=== PATIENT | female | born 1935 | race Caucasian/White ===

== ENCOUNTER 2019-04-09 17:06 | Inpatient (IN) | payer MEDICARE ==
[~2019-04-09] VITALS: Ht 160 cm; Wt 74.4 kg
[2019-04-09 18:03] LABS: BASOPHILS # (AUTO) 0.1 K/uL (0.0-8.0); BASOPHILS % (AUTO) 0.6 % (0.0-2.0); EOSINOPHILS # (AUTO) 0.4 K/uL (0.0-0.7); HEMATOCRIT 36.8 % (31.2-41.9); HEMOGLOBIN 12.5 g/dL (10.9-14.3); LYMPHOCYTES # (AUTO) 2.2 K/uL (20.0-40.0); LYMPHOCYTES % (AUTO) 15.4 % (20.5-51.5); MEAN CORPUSCULAR HEMOGLOBIN 29.3 uug (24.7-32.8); MEAN CORPUSCULAR HGB CONC 34 g/dL (32.3-35.6); MEAN CORPUSCULAR VOLUME 85.9 fL (75.5-95.3); MONOCYTES # (AUTO) 1.1 K/uL (2.0-10.0); NEUTROPHILS # (AUTO) 10.5 K/uL (1.8-8.9); PLATELET COUNT (AUTO) 105 K/uL (179-408); RED BLOOD CELL COUNT(AUTO) 4.29 MIL/uL (3.63-4.92); WHITE BLOOD COUNT (AUTO) 14.4 K/uL (3.8-11.8)
[2019-04-09 18:09] LABS: CARBON DIOXIDE 27 mmol/L (21-32); CHLORIDE 102 mmol/L (98-107); GLUCOSE 101 mg/dL (74-106); POTASSIUM 3.5 mmol/L (3.5-5.1); UREA NITROGEN, BLOOD 22 mg/dL (7-18)
[2019-04-09 18:12] LABS: ETHANOL < 3 MG/DL (0-0)
[2019-04-09 18:15] LABS: ALANINE AMINOTRANSFERASE 13 U/L (14-59); ALKALINE PHOSPHATASE 119 U/L (50-136); ASPARTATE AMINOTRANSFERASE 33 U/L (15-37); BILIRUBIN,DIRECT 0.3 mg/dL (0.0-0.2); BILIRUBIN,TOTAL 0.7 mg/dL (0.2-1.0); TOTAL PROTEIN, SERUM 6.2 g/dL (6.4-8.2)
[2019-04-09 18:16] LABS: ACETAMINOPHEN < 2.0 ug/mL (10-30)
[2019-04-09 18:38] LABS: THYROID STIMULATING HORMONE 2.908 mIU/mL (0.358-3.740)
--- NOTE | 2019-04-09 18:44 | NUR ---
PT TRYING TO COME OUT OF BED, WITH UNSTEADY GAIT AND CONFUSED. FREIGHT CAR CLEAN[employer] DELTA SYSTEM NOTIFIED FOR ONE TO ONE SITTER.
[2019-04-09] MEDS ORDERED: AZITHROMYCIN IV 500 MG in IV DEXTROSE 5% 250 ML IV ONE (18:45)
[2019-04-09] MEDS ORDERED: CEFTRIAXONE 1 G in IV DEXTROSE 5% 50 ML IV ONE (18:45)
[2019-04-09] MEDS ORDERED: AZITHROMYCIN 500MG/ D5W 250ML IVPB **ER PYXIS ONLY IV ONE (18:58)
[2019-04-09] MEDS ORDERED: CEFTRIAXONE /D5W 50ML IVPB **ER PYXIS IV ONE (18:58)
[2019-04-09] MEDS ORDERED: HYDROCODONE/APAP 5-325MG TABLET ONE (19:44)
--- NOTE | 2019-04-09 20:10 | NUR ---
DR AVALOS ON PANEL CALL WITH DR HERRERA. PT ACCEPTED FOR ADMISSION TO MED-SURG. DX: PNEUMONIA.
[2019-04-09] MEDS ORDERED: Z GUARD REMEDY PASTE 57 GM TUBE TOP PRN (20:30)
[2019-04-09] MEDS ORDERED: HYDROCODONE/APAP 5-325MG TABLET PO PRN (20:30)
[2019-04-09] MEDS ORDERED: ONDANSETRON 4 MG/2 ML VIAL IV PRN (20:30)
[2019-04-09] MEDS ORDERED: ACETAMINOPHEN 325 MG TABLET PO PRN (20:30)
[2019-04-09] MEDS ORDERED: MAGNESIUM HYDROXIDE 30 ML LIQUID UDC PO PRN (20:30)
--- NOTE | 2019-04-09 20:39 | NUR ---
Report given KATHARINA ERNST. Pt. being admitted to [facility] , under care of Dr. HERRERA. Belongs List completed.
--- NOTE | 2019-04-09 21:00 | NUR ---
RECEIVED PATIENT VIA GURNEY FROM ER. PATIENT IS A/O X2, BUT VERY FORGETFUL. SITTER AT BEDSIDE. VSS. DENIES PAIN OR DISCOMFORT. NO RESP. DISTRESS NOTED. H/L INTACT AND PATENT, NOTED TO LEFT HAND. BED ALARM ON. CALL LIGHT IN REACH. ALL NEEDS ATTENDED. WILL CONTINUE TO MONITOR AND ASSESS.
[2019-04-09 21:15] VITALS: BP 127/78
[2019-04-09] MEDS: IV NS 1000 ML 1,000 ML IV PRN (21:29)
--- NOTE | 2019-04-10 05:00 | NUR ---
PATIENT AWAKE, SITTER AT BEDSIDE. PATIENT UNABLE TO URINATE AT THIS TIME. CHECKED WITH BLADDER SCANNER AND RECEIVED RETENTION OF 700cc OF URINE. CALLED OUT TO DR. LUCIANO FOR FURTHER ORDERS. WILL CONTINUE TO MONITOR AND ASSESS.
--- NOTE | 2019-04-10 05:10 | NUR ---
RECEIVED ORDER FOR F/C INSERTION. FLETCHER PLACED ORDERED. IV DISLODGED. RE-INSERTED TO RIGHT FA #20 GAUGE. IVF INFUSING WELL. VS WNL. PATIENT DENIES PAIN. SITTER AT BEDSIDE FOR SAFETY. BED ALARM ON. ALL NEEDS ATTENDED. WILL CONTINUE TO MONITOR AND ASSESS.
[2019-04-10 05:30] VITALS: BP 101/59
[2019-04-10 07:21] LABS: BASOPHILS % (AUTO) 0.3 % (0.0-2.0); EOSINOPHILS # (AUTO) 0.4 K/uL (0.0-0.7); EOSINOPHILS % (AUTO) 3.8 % (0.0-7.0); HEMOGLOBIN 11.5 g/dL (10.9-14.3); LYMPHOCYTES # (AUTO) 1.2 K/uL (20.0-40.0); LYMPHOCYTES % (AUTO) 12.2 % (20.5-51.5); MEAN CORPUSCULAR HEMOGLOBIN 28.5 uug (24.7-32.8); MEAN CORPUSCULAR HGB CONC 33 g/dL (32.3-35.6); MEAN CORPUSCULAR VOLUME 86.9 fL (75.5-95.3); MONOCYTES # (AUTO) 0.7 K/uL (2.0-10.0); MONOCYTES % (AUTO) 7.5 % (0.0-11.0); NEUTROPHILS # (AUTO) 7.4 K/uL (1.8-8.9); NEUTROPHILS % (AUTO) 76.2 % (38.5-71.5); PLATELET COUNT (AUTO) 104 K/uL (179-408); RED BLOOD CELL COUNT(AUTO) 4.03 MIL/uL (3.63-4.92); WHITE BLOOD COUNT (AUTO) 9.7 K/uL (3.8-11.8)
[2019-04-10 07:45] LABS: BILIRUBIN,TOTAL 0.6 mg/dL (0.2-1.0); CREATININE 0.8 mg/dL (0.6-1.3); MAGNESIUM 2.1 mg/dL (1.8-2.4); PHOSPHOROUS 3.4 mg/dL (2.5-4.9); POTASSIUM 3.1 mmol/L (3.5-5.1); TOTAL PROTEIN, SERUM 6.1 g/dL (6.4-8.2)
[2019-04-10] MEDS: IV NS 1000 ML 1,000 ML IV PRN (12:06)
[2019-04-10 12:46] VITALS: BP 128/83
[2019-04-10] MEDS ORDERED: POTASSIUM CHLORIDE 20 MEQ TAB.PRT.SR PO ONE (15:30)
[2019-04-10] MEDS ORDERED: AZITHROMYCIN IV 250 MG in IV DEXTROSE 5% 250 ML IV SCH (18:00)
[2019-04-10] MEDS ORDERED: HYDROCODONE/APAP 5-325MG TABLET PO PRN (18:00)
[2019-04-10] MEDS: CEFTRIAXONE 1 G in IV DEXTROSE 5% 50 ML IV SCH (18:04)
[2019-04-10] MEDS ORDERED: ONDANSETRON 4 MG/2 ML VIAL IV PRN (18:15)
--- NOTE | 2019-04-10 19:30 | NUR ---
Received patient awake and alert in bed, A/Ox2 with 1:1 sitter at bedside. No signs of acute distress noted. No complaints of pain or SOB. Vitals WNL. Patient needs reorientation, trying to get out of bed but is very weak. Loera is intact and draining well. Urine is clear, yellow. Safety measures initiated. Bed is low and locked, call light within reach. Will continue to monitor.
[2019-04-10 19:48] VITALS: BP 125/84
[2019-04-10] MEDS ORDERED: QUETIAPINE FUMARATE 25 MG TABLET PO SCH (21:00)
[2019-04-11] MEDS: IV NS 1000 ML 1,000 ML IV PRN ×2 (03:13→20:35)
[2019-04-11 04:00] VITALS: BP 121/78
[2019-04-11 06:29] LABS: CREATININE 0.8 mg/dL (0.6-1.3); POTASSIUM 3.7 mmol/L (3.5-5.1)
[2019-04-11 11:11] VITALS: BP 102/64
[2019-04-11 15:24] VITALS: BP 146/71
[2019-04-11] MEDS: AZITHROMYCIN 250 MG TABLET PO SCH (19:17)
[2019-04-11] MEDS: CEFTRIAXONE 1 G in IV DEXTROSE 5% 50 ML IV SCH (19:17)
--- NOTE | 2019-04-11 19:30 | NUR ---
Received patient awake and alert in bed, 1:1 sitter at bedside. Patient is restless, trying to get out of bed, but is too weak. Frequent reorientation needed. Noted patients Seroquel dose increased. IVF running on the right wrist, no s/s of infection or infiltration noted. Safety measures initiated. Bed is low and locked, will continue to monitor.
[2019-04-11 19:51] VITALS: BP 143/83
[2019-04-11] MEDS ORDERED: QUETIAPINE FUMARATE 25 MG TABLET PO SCH (21:00)
[2019-04-12 05:00] VITALS: BP 133/85
--- NOTE | 2019-04-12 07:35 | NUR ---
Received patient awake in bed with 1:1 sitter at bedside. Patient is restless and trying to get out of bed. Frequent reorientation needed. IVF running on the right wrist at 75 ml/hr with NS. Safety and comfort provided. will continue to monitor.
[2019-04-12 08:00] VITALS: BP 161/95
[2019-04-12] MEDS: IV NS 1000 ML 1,000 ML IV PRN (10:44)
[2019-04-12 12:00] VITALS: BP 142/71
[2019-04-12 15:48] VITALS: BP 136/73
[2019-04-12] MEDS: AZITHROMYCIN 250 MG TABLET PO SCH (18:08)
--- NOTE | 2019-04-12 19:00 | NUR ---
RECEIVED ORDER TO DISCHARGE PATIENT TO MHU , DISCHARGE INSTRUCTION GIVEN . IV AND ID BAND REMOVED. PATIENT REFUSED PICTURE TAKEN. BELONGINGS ACCOUNTED FOR AND SIGNED. QUESTIONS AND CONCERNS ADDRESSED.
== END 2019-04-12 18:30 | DRG 871 ==
LOC: ER 17:09 → TELE3 20:38 → MEDSURG3 21:26
PROVIDERS: ADMIT Hospitalist; ATTEND Hospitalist
DX: A41.9 Sepsis, unspecified organism (principal); J18.1 Lobar pneumonia, unspecified organism; F33.2 Major depressive disorder, recurrent severe without psychotic features; E44.0 Moderate protein-calorie malnutrition; D69.6 Thrombocytopenia, unspecified; E87.6 Hypokalemia; E86.0 Dehydration; Z91.19 Patient's noncompliance with other medical treatment and regimen; M41.9 Scoliosis, unspecified; F09 Unspecified mental disorder due to known physiological condition; R33.9 Retention of urine, unspecified; F41.9 Anxiety disorder, unspecified
CPT/HCPCS: 36415; 70030-TC; 71045; 83735; 84100; 84443; 85025; 85730; 87040; 93005; A4663; G0378; G0480; G0480-TC; J0456; J0696; J7030; J7060; Q0144

== ENCOUNTER 2019-04-12 19:49 | Inpatient (IN) | payer MEDICARE ==
[~2019-04-12] VITALS: Ht 160 cm; Wt 73.9 kg
[2019-04-12 20:00] VITALS: BP 140/88
[2019-04-12] MEDS ORDERED: TEMAZEPAM 7.5 MG CAPSULE PO PRN (20:45)
[2019-04-12] MEDS ORDERED: MAG HYDROX/AL HYDROX/SIMETH 30 ML LIQUID UDC PO PRN (20:45)
[2019-04-12] MEDS ORDERED: ACETAMINOPHEN 325 MG TABLET PO PRN (20:45)
[2019-04-12] MEDS ORDERED: QUETIAPINE FUMARATE 25 MG TABLET PO PRN (20:45)
[2019-04-12] MEDS ORDERED: TRAZODONE 50 MG TABLET PO PRN (20:45)
[2019-04-12] MEDS ORDERED: MAGNESIUM HYDROXIDE 30 ML LIQUID UDC PO PRN (20:45)
[2019-04-12] MEDS ORDERED: QUETIAPINE FUMARATE 25 MG TABLET PO SCH (21:00)
--- NOTE | 2019-04-13 03:04 | NUR ---
ADMITTING NOTE; received to care, at 1845, from the med/ surg floor, on a 14 hour hold for gravely disabled, a resident of [facility]. according to the records, she had resided there for a short time, but had become unmanageable, refusing medications and care, not sleeping. attempting to get up without assistance, and swinging at staff when redirected. upon arrival at the emergency room, she was diagnosed with LLL pneumonia, and was admitted on the floor for IV antibiotics, with a 1;1 sitter, for safety. she was now medically clear, and was transferred to the mental health unit. upon arrival here, she was confused and disoriented, believing she was at home, and unable to provide much meaningful information. 1;1 sitter was assigned for safety. she continues to refuse all medications. difficult to redirect. assisted to bed at around 0145. as of now, she appears to be asleep. no distress noted. will continue to monitor closely.
--- NOTE | 2019-04-13 06:00 | NUR ---
pt did not sleep, at all. assisted with am care, and shower. 1;1 sitter remains at side, for safety.
[2019-04-13] MEDS ORDERED: QUETIAPINE FUMARATE 25 MG TABLET PO PRN (07:30)
[2019-04-13] MEDS ORDERED: TRAZODONE 50 MG TABLET PO PRN (07:30)
[2019-04-13 10:00] VITALS: BP 133/86
--- NOTE | 2019-04-13 11:12 | NUR ---
Social Work Initial Discharge Note: Patient currently resides at [address] [address]; ([phone]). Per pt, she would like to return back home. This copy writer contacted Dawn admin coordinator ([phone]), stated that patient is welcomed back upon discharge. sewage disposal worker will work with the patient and the MD regarding appropriate discharge planning. sewage disposal worker will form a safe and proper discharge plan.
--- NOTE | 2019-04-13 11:13 | NUR ---
Social Work Family Contact Note: sawmill or timber yard worker contacted patients family member Dawn ([phone]) and Jose ([phone]) and both were unavailable, however; this conventional mortgage underwriter left a detailed voicemail to call back.
[2019-04-13] MEDS ORDERED: QUETIAPINE FUMARATE 25 MG TABLET PO SCH ×3 (12:00→21:00)
--- NOTE | 2019-04-13 14:36 | NUR ---
called and spoke with Dr. Yeager to DC Loera catheter , orders made and carried out
--- NOTE | 2019-04-13 14:49 | NUR ---
Patient for transfer to [facility] for overflow with one to one. will give report to BRITTA Bourgeois. collected urine for UA/CS.will send to lab.
--- NOTE | 2019-04-13 15:03 | NUR ---
RECEIVED PT VIA MIGUEL CHAIR ESCORTED BY 1:1 SITTER. NO ACUTE DISTRESS OR SOB NOTED. FLETCHER CATHETER REMOVED IN MHU UNIT. WILL MONITOR FOR SAFETY, COMFORT AND URINARY RETENTION. 1:1 SITTER AT BEDSIDE FOR SAFETY.
[2019-04-13 16:00] VITALS: BP 133/92
[2019-04-13 16:03] LABS: *BILIRUBIN,URIN NEGATIVE (NEGATIVE); *BLOOD, URINE 3+ (NEGATIVE); *CLARITY,URINE SLIGHTLY CLOUDY (CLEAR); *COLOR,URINE YELLOW (YELLOW); *KETONES,URINE TRACE (NEGATIVE); *UROBILINOGEN,URINE 0.2 E.U./dl (NORMAL); LEUKOCYTE ESTERASE ,URINE TRACE (NEGATIVE); NITRITE, URINE NEGATIVE (NEGATIVE); UGLUCOSE NEGATIVE (NEGATIVE)
[2019-04-13 16:26] LABS: MUCUS,URINE MANY /LPF (0-FEW); RBC,URINE 50-80 /HPF (0-3); SQUAMOUS EPITHELIAL CELL,UR FEW /HPF (NONE SEEN)
--- NOTE | 2019-04-13 18:00 | NUR ---
BLADDER SCAN DONE. SHOWS 172CC IN BLADDER. PT HAS NOT VOIDED SINCE FLETCHER REMOVAL AT MHU @ 1500. PSYCH AWARE. PT HAS A 1:1 SITTER AT BEDSIDE FOR SAFETY. NO ACUTE DISTRESS NOTED. WILL GIVE REPORT ACCORDINGLY IN ORDER TO MONITOR SAFETY AND URINE OUTPUT.
--- NOTE | 2019-04-13 19:00 | NUR ---
Received patient in bed asleep but arousable, A&Ox1. No SOB noted. w/ 1:1 sitter for safety.
[2019-04-13] MEDS: CEphaleXIN 500 MG CAPSULE PO SCH (21:01)
--- NOTE | 2019-04-13 23:00 | NUR ---
Patient didn't void yet since 1500, bladder scan done noted w/ 261ml residuals. Patient to be transferred back to MHU. Report given to Brice CALLEJAS
--- NOTE | 2019-04-14 06:15 | NUR ---
Patient didn't void throughout the night. Bladder scan done noted w/ 642ml residuals. patient in no distress. Dr. Johnson notified and new order obtained to do and "In and Out straight cath". order noted and carried out. Obtained Urine output of 800ml. patient tolerated well. will continue to monitor.
[2019-04-14] MEDS: CEphaleXIN 500 MG CAPSULE PO SCH ×3 (06:46→22:13)
[2019-04-14 07:30] VITALS: BP 157/88
--- NOTE | 2019-04-14 11:19 | NUR ---
Social Work Family Contact Note: burlap worker contacted patients family member Dawn ([phone]) and left a voicemail to call back.
[2019-04-14 20:29] VITALS: BP 113/72
[2019-04-14] MEDS: QUETIAPINE FUMARATE 25 MG TABLET PO SCH (21:44)
--- NOTE | 2019-04-15 05:12 | NUR ---
NSG/GPS Patient first observed awake sitting in lan-chair in the hallway. Patient appears disheveled and unkempt. Alert to name only. No aggression or behavior noted. Patient is compliant with medication. Requires assist to ambulate, observed attempting to walk to the bathroom by herself this morning, advised to wait for nursing assistance. Patient requested prn for constipation, will administer as ordered. Slept well through the night without signs of discomfort or distress will continue to monitor for safety as well as continue to provide a safe and therapeutic environment.
[2019-04-15] MEDS: CEphaleXIN 500 MG CAPSULE PO SCH ×3 (06:00→21:17)
[2019-04-15 07:13] LABS: BASOPHILS # (AUTO) 0.1 K/uL (0.0-8.0); BASOPHILS % (AUTO) 0.8 % (0.0-2.0); EOSINOPHILS # (AUTO) 0.4 K/uL (0.0-0.7); EOSINOPHILS % (AUTO) 4.2 % (0.0-7.0); HEMATOCRIT 38.5 % (31.2-41.9); HEMOGLOBIN 12.6 g/dL (10.9-14.3); LYMPHOCYTES # (AUTO) 1.3 K/uL (20.0-40.0); LYMPHOCYTES % (AUTO) 14.8 % (20.5-51.5); MEAN CORPUSCULAR HEMOGLOBIN 27.8 uug (24.7-32.8); MEAN CORPUSCULAR HGB CONC 33 g/dL (32.3-35.6); MONOCYTES # (AUTO) 0.6 K/uL (2.0-10.0); MONOCYTES % (AUTO) 6.8 % (0.0-11.0); NEUTROPHILS # (AUTO) 6.5 K/uL (1.8-8.9); NEUTROPHILS % (AUTO) 73.4 % (38.5-71.5); PLATELET COUNT (AUTO) 208 K/uL (179-408); RED BLOOD CELL COUNT(AUTO) 4.52 MIL/uL (3.63-4.92); WHITE BLOOD COUNT (AUTO) 8.8 K/uL (3.8-11.8)
[2019-04-15 07:30] VITALS: BP 102/53
[2019-04-15 07:53] LABS: BILIRUBIN,TOTAL 0.4 mg/dL (0.2-1.0); CREATININE 0.9 mg/dL (0.6-1.3); MAGNESIUM 1.9 mg/dL (1.8-2.4); PHOSPHOROUS 3.8 mg/dL (2.5-4.9); POTASSIUM 3.7 mmol/L (3.5-5.1); TOTAL PROTEIN, SERUM 6.6 g/dL (6.4-8.2)
[2019-04-15 09:20] LABS: THYROID STIMULATING HORMONE 2.662 mIU/mL (0.358-3.740)
--- NOTE | 2019-04-15 09:39 | NUR ---
Social Work Individual Therapy Note: elementary school social worker met with patient for brief counseling to address patients self-care, bathing and grooming. Patient is unable to have a meaningful conversation. elementary school social worker prompted patient the importance of self-care, bathing and grooming. Patient acknowledged and agreed to participate in self-care. This bond writer informed if she needs assistance to call a nurse.
--- NOTE | 2019-04-15 09:56 | NUR ---
Social Work PC Hearing Notification Note: circulation worker contacted patient's family member Shelli, ([phone]) and notified patients probable cause of hearing today. This designer writer left a voicemail.
[2019-04-15 16:00] VITALS: BP 113/64
[2019-04-15 20:08] VITALS: BP 112/62
[2019-04-15] MEDS: QUETIAPINE FUMARATE 25 MG TABLET PO SCH (21:16)
[2019-04-16] MEDS: CEphaleXIN 500 MG CAPSULE PO SCH ×3 (06:22→21:36)
[2019-04-16 07:30] VITALS: BP 107/71
[2019-04-16 15:56] VITALS: BP 132/76
[2019-04-16] MEDS: QUETIAPINE FUMARATE 25 MG TABLET PO SCH (20:02)
[2019-04-16 20:18] VITALS: BP 143/83
[2019-04-17] MEDS: CEphaleXIN 500 MG CAPSULE PO SCH ×3 (06:39→22:00)
[2019-04-17 07:30] VITALS: BP 138/86
--- NOTE | 2019-04-17 11:58 | NUR ---
Gps/Laborer Wharf- Kept up on her lan-chair, fed self ind. after set up. had been cooperative with staff. Needy, constant redirection provided .Safety reviewed and emphasized.
[2019-04-17 16:00] VITALS: BP 127/78
[2019-04-17] MEDS: QUETIAPINE FUMARATE 25 MG TABLET PO SCH (20:08)
[2019-04-17 20:35] VITALS: BP 148/91
[2019-04-18] MEDS: CEphaleXIN 500 MG CAPSULE PO SCH (06:49)
[2019-04-18 07:30] VITALS: BP 142/100
[2019-04-18 16:13] VITALS: BP 123/77
--- NOTE | 2019-04-18 16:45 | NUR ---
Gps/Golf Club Head Former- Stayed in the activity room during the afternoon, participating in her group therapy
[2019-04-18 20:19] VITALS: BP 120/80
[2019-04-18] MEDS: QUETIAPINE FUMARATE 25 MG TABLET PO SCH (21:13)
--- NOTE | 2019-04-18 22:00 | NUR ---
received to care, in the hallway, up in the lan chair, appearing disheveled, and confused. compliant with all medications, fluids, and snacks, given. as of 2200, she appears asleep, in bed. no distress noted. will continue to monitor closely.
--- NOTE | 2019-04-19 06:00 | NUR ---
slept 7 hours. continues to sleep. no distress noted.
[2019-04-19 07:30] VITALS: BP 119/81
[2019-04-19 08:41] LABS: BILIRUBIN,TOTAL 0.4 mg/dL (0.2-1.0); CREATININE 1.1 mg/dL (0.6-1.3); MAGNESIUM 2.1 mg/dL (1.8-2.4); PHOSPHOROUS 4.3 mg/dL (2.5-4.9); POTASSIUM 4.3 mmol/L (3.5-5.1); TOTAL PROTEIN, SERUM 7.4 g/dL (6.4-8.2)
[2019-04-19 08:51] LABS: BASOPHILS % (AUTO) 0.7 % (0.0-2.0); EOSINOPHILS # (AUTO) 0.3 K/uL (0.0-0.7); EOSINOPHILS % (AUTO) 4.9 % (0.0-7.0); HEMATOCRIT 42.4 % (31.2-41.9); HEMOGLOBIN 13.7 g/dL (10.9-14.3); LYMPHOCYTES # (AUTO) 1.6 K/uL (20.0-40.0); LYMPHOCYTES % (AUTO) 27.1 % (20.5-51.5); MEAN CORPUSCULAR HEMOGLOBIN 27.8 uug (24.7-32.8); MEAN CORPUSCULAR HGB CONC 32 g/dL (32.3-35.6); MEAN CORPUSCULAR VOLUME 85.9 fL (75.5-95.3); MONOCYTES # (AUTO) 0.4 K/uL (2.0-10.0); MONOCYTES % (AUTO) 6.8 % (0.0-11.0); NEUTROPHILS # (AUTO) 3.6 K/uL (1.8-8.9); NEUTROPHILS % (AUTO) 60.5 % (38.5-71.5); PLATELET COUNT (AUTO) 247 K/uL (179-408); RED BLOOD CELL COUNT(AUTO) 4.94 MIL/uL (3.63-4.92)
--- NOTE | 2019-04-19 09:35 | NUR ---
Social Work Discharge Note: Patient will be discharged back to [facility] [address] [place] [address]; ([phone]) via [facility] at 2PM. BALA spoke with Dawn radiology administrator, ([phone]) at the facility who states they are ready to accept the patient back today. Patient is aware and agreeable with discharge plans. Patients family member Shelli ([phone]) is aware and agreeable with discharge plans. Patient is alert and oriented x1-2, is unable to plan for self-care, but agrees to receiving care at the facility. Patient denies any suicidal or homicidal ideations. Patient will follow-up at the facility with Dr. Luis Mae (Senior Research Engineer) and Dr. Hernández (Psychiatrist). Patient presents with euthymic mood and congruent affect.
--- NOTE | 2019-04-19 09:40 | NUR ---
Social Work Firearms Report: Director Distribution completed and submitted a [employer] firearms report for 5250 grave disability certification. A copy of report has been placed in patient chart.
--- NOTE | 2019-04-19 09:40 | NUR ---
Social Work Individual Therapy Note: dyehouse worker met with patient for brief counseling to address patients self-care, bathing and grooming. Patient is able to have meaningful conversation but still presents confused. dyehouse worker prompted patient the importance of self-care, bathing and grooming. Patient acknowledged and agreed to participate in self-care. This headline writer informed if she needs assistance to call a nurse.
--- NOTE | 2019-04-19 10:07 | NUR ---
Social Work Coordination of Care: whiting can worker faxed patients H & P psychiatric notes and progress notes to Dawn admin coordinator at [facility] ([phone]).
--- NOTE | 2019-04-19 12:37 | NUR ---
Received patient awake, alert and oriented in chair. Patient is calm, cooperative, and redirectable. Patient denies SI/HI, denies AH/VH. Patient is able to communicate her needs to staff. Patient has unsteady gait, requires staff assistance with ambulation. Patient able to eat and drink fluids independently, requires assistance with ADL's. Patient is education about impulse control and communicating her needs to staff appropriately. Will continue to monitor.
--- NOTE | 2019-04-19 15:16 | NUR ---
Discharge Note: Patient discharged off unit in stable condition accompanied by transportation drive to go to Assisted Living Facility. Patient's belongings inventoried and returned to patient. Patient provided with discharge prescriptions, discharge instructions, and follow up care. Patient denies SI/HI, denies AH/VH. Patient escorted off unit in a wheelchair without adverse event. Patient admitted with multiple bruises on BUE, bruise on left shoulder, and callous on left plantar foot. Patient refused photographs of skin but allowed this television writer to assess skin. Skin is intact, and bruising has decreased on BUE and shoulders.
== END 2019-04-19 14:30 | DRG 885 ==
LOC: GPS 19:49 → GPSOV3 04-13 15:20 → GPS 04-13 23:07
PROVIDERS: ADMIT Psychiatry & Neurology Psychiatry; ATTEND Internal Medicine
DX: F29 Unspecified psychosis not due to a substance or known physiological condition (principal); J18.9 Pneumonia, unspecified organism; F02.81 Dementia in other diseases classified elsewhere, unspecified severity, with behavioral disturbance; E44.0 Moderate protein-calorie malnutrition; D68.59 Other primary thrombophilia; N39.0 Urinary tract infection, site not specified; G30.9 Alzheimer's disease, unspecified; E87.6 Hypokalemia; E86.0 Dehydration; M19.90 Unspecified osteoarthritis, unspecified site; Z74.09 Other reduced mobility; R73.03 Prediabetes; Z87.440 Personal history of urinary (tract) infections; Z63.8 Other specified problems related to primary support group
CPT/HCPCS: 36415; 51798; 83735; 84100; 84443; 85025; 87086